=== PATIENT | female | born 1940 | race Caucasian/White ===

== ENCOUNTER → 2017-01-29 | Outpatient (CLI) | payer OTHER ==
[2015-03-23 14:45] VITALS: BP 93/52
[~2017-01-29] MED LIST: ASPI-482 PO; FERR-26 PO; FLUT1DIS3 IH; LISI-338 PO; LISI1TAB7 PO; MELO-150 PO; METO25TA4 PO; MULT-245 PO; NAPR220T25 PO; ONDA4TAB10 SL; OXYC-323 PO; PROAIR HFA8.5 GM INH; SIMV20TA3 PO; WARF5TAB PO
--- NOTE | 2017-01-29 14:11 | KCIC ---
Ultrasound thyroid Indication: Enlarged thyroid noted on CT. No prior studies are available for comparison. The right lobe of the thyroid measures 4.6 x 1.8 x 2.3 centimeters and the left lobe measures 5.6 x 2.3 x 2.2 centimeters. The isthmus is 10 millimeters in thickness. There is a 2 millimeter calcification in the right lobe of the thyroid. Both lobes do show heterogeneity but no discrete or dominant mass is detected. Impression: Thyroid enlargement and thyroid heterogeneity. No dominant mass is detected. Electronically signed by: Salbador Velasco MD (Jan 29, 2017 14:09:59)
== END | disposition home or self-care (01) ==
LOC: KCIC US 13:18
PROVIDERS: ATTEND Nurse Practitioner Family
DX: E04.9 Nontoxic goiter, unspecified (principal)
CPT/HCPCS: 76536

== ENCOUNTER → 2017-02-02 | Outpatient (CLI) | payer MEDICARE, OTHER ==
[2015-03-23 14:45] VITALS: BP 93/52
--- NOTE | 2017-02-09 23:49 | SLEEP ---
DATE OF STUDY: 02/02/2017 REFERRING PERSON: Kate Mohamud TRANSPORTATION DISPATCHER INDICATION: The patient is [id number], who weighs 205 pounds with a BMI of 32. The patient's [place] score was 7. Sleep study was performed at [facility]. This was a split-night study. During the night study, the patient spent 477 minutes in bed and slept for 382 minutes with a sleep efficiency of 80%. Sleep latency was 27 minutes with a REM latency of 96 minutes. Overall, sleep architecture showed normal stage I sleep, ____ reduced stage II sleep and significantly increased slow wave sleep, which was 56% of the total sleep time and significantly reduced REM sleep, which was 4% of the total sleep time. During the initial diagnostic portion of the study, the patient slept for 139 minutes. During this time, there were 42 obstructive apneas, 8 mixed and 1 central apneas. There were 72 hypopneas. The patient's apnea-hypopnea index was 53 per hour, supine index 53 per hour. Supine sleep was seen throughout with a REM index of 86 per hour. Review of nocturnal oximetry study revealed a mean oxygen saturation of 94% with the lowest of 70%. 84% of time oxygen saturation remained between 80% and 89%. EKG monitoring revealed normal sinus rhythm. No sustained arrhythmias were observed. Average heart rate was 78 beats per minute. PLMS were seen at index of 25 per hour and 5 per hour caused EEG arousals. The patient met the criteria for CPAP initiation. It was started at 7 cm of water as the patient was unable to tolerate lower pressure. At a final pressure of 15 cm of water, the patient had 42 minutes of sleep. Supine sleep was seen throughout. No REM sleep observed. AHI was 3 per hour and oxygen saturation remained above 88%. The patient used small-sized DreamWear nasal pillows. IMPRESSION: 1. Severe sleep apnea-hypopnea syndrome with an AHI of 53 per hour. 2. Nocturnal hypoxia secondary to obstructive sleep apnea, but resolved with CPAP. 3. Moderate periodic limb movement seen an index of 25 per hour and 5 per hour caused EEG arousals. This does not need to be treated unless the patient has symptoms of restless legs during the day. RECOMMENDATIONS: 1. CPAP at 15 cm water completely eliminated the patient's sleep apnea should be used on a nightly basis. The patient used small-sized nasal pillows. 2. Follow up in 4-6 weeks to assess compliance with CPAP and to document clinical improvement. 3. Weight loss is strongly advised. 4. Avoid [employer]IAN depressants. 5. Caution regarding driving until symptoms of sleep apnea resolve with the use of CPAP. AKBAR JC MD DR: MELISSA/michael JOB#: [id number] / [id number] KATE Ireland APRN MTDD
== END | disposition home or self-care (01) ==
LOC: SLPLAB 18:41
PROVIDERS: ATTEND Nurse Practitioner Family
DX: G47.33 Obstructive sleep apnea (adult) (pediatric) (principal)
CPT/HCPCS: 95810

== ENCOUNTER → 2017-12-14 | Outpatient (CLI) | payer OTHER | END | disposition home or self-care (01) | LOC: KCIC CT 12:26 | DX: M27.40 Unspecified cyst of jaw (principal); J32.9 Chronic sinusitis, unspecified (principal); M85.88 Other specified disorders of bone density and structure, other site; J34.1 Cyst and mucocele of nose and nasal sinus | CPT/HCPCS: 70486 ==

== ENCOUNTER → 2018-03-03 | Outpatient (CLI) | payer OTHER | END | disposition home or self-care (01) | LOC: KCIC 09:49 | DX: J44.1 Chronic obstructive pulmonary disease with (acute) exacerbation (principal); I50.9 Heart failure, unspecified | CPT/HCPCS: 71046 ==

== ENCOUNTER → 2020-01-20 | Outpatient (CLI) | payer MEDICARE ==
[2017-04-12 11:00] VITALS: BP 145/61
[~2020-01-20] MED LIST changes: +ALBU2.5V8 INH; -FERR-26 PO; +FERR325T14 PO; +LEVO500T59 PO; +LISI1TAB20 PO; -LISI1TAB7 PO; -MELO-150 PO; +MELO15TA23 PO; +NAPR-634 PO; -NAPR220T25 PO; -OXYC-323 PO; +OXYC1TAB15 PO; -PROAIR HFA8.5 GM INH; +SIMV20TA18 PO; -SIMV20TA3 PO; +WARF-78 PO; -WARF5TAB PO
--- NOTE | 2020-01-20 11:24 | KCIC ---
EXAM: Right breast diagnostic mammogram with tomosynthesis; right breast sonogram. HISTORY: 79-year-old female with a history of left breast cancer, status post left mastectomy, presents with right breast pain. TECHNIQUE: Full-field digital craniocaudal and mediolateral oblique 2D and 3D tomosynthesis images of the right breast are obtained for evaluation. Computer aided detection with [employer] software version 9.3 was applied. Sonographic imaging of the right breast targeted to the site of reported pain was also performed. COMPARISON: 01/26/2014 BREAST PARENCHYMAL DENSITY: Level B - Scattered fibroglandular densities. FINDINGS: There is no new suspicious mass, microcalcification or region of architectural distortion. Sonographic imaging of the right breast demonstrates no suspicious finding. IMPRESSION: 1. No new suspicious mammographic finding or suspicious sonographic finding. 2. BI-RADS Category 2: Benign finding(s). RECOMMENDATION: Annual mammography is recommended. If your mammogram demonstrates that you have dense breast tissue, which could hide abnormalities, and if you have other risk factors for breast cancer that have been identified, you might benefit from supplemental screening tests that may be suggested by your ordering physician. Dense breast tissue, in and of itself, is a relatively common condition. This information is not provided to cause undue concern, but rather to raise your awareness and to promote discussion with your physician regarding the presence of other risk factors, in addition to dense breast tissue. A report of your mammography results will be sent to you and your physician. You should contact your physician if you have any questions or concerns regarding this report. Mammography is a sensitive method for finding small breast cancers, but it does not detect them all and is not a substitute for careful clinical examination. A negative mammogram does not negate a clinically suspicious finding and should not result in delay in biopsying a clinically suspicious abnormality. PQRS compliance statement - Patient information was entered into a reminder system with a target due date for the next mammogram. "Our facility is accredited by the [employer] Mammography Program." Electronically signed by: Melissa Tinsley MD (01/20/2020 11:20 AM) [email or web address]
== END ==
LOC: KCIC MAMMO 09:44
PROVIDERS: ATTEND Nurse Practitioner Family
DX: R07.1 Chest pain on breathing (principal); R92.2 Inconclusive mammogram
CPT/HCPCS: 76641; 77065; G0279; 77061